=== PATIENT | male | born 1970 ===

== ENCOUNTER 2017-09-24 00:42 | Emergency (ER) | payer BC ==
[2017-09-24 00:42] VITALS: BMI 41.0
[2017-09-24 00:50] VITALS: BP 143/88; PULSE 95; RESP 20; TEMP 97.8; O2SAT 98
--- NOTE | 2017-09-24 01:05 | C.PDOC ---
History Of Present Illness 47 year old male presents to the ER with a complaint of tooth ache worsening over the past week after having a crown placed. Denies tooth discharge or recent injury. Time Seen by Provider: 09/24/17 00:51 Chief Complaint (Nursing): Dental Pain History Per: Patient History/Exam Limitations: no limitations Onset/Duration Of Symptoms: Days Current Symptoms Are (Timing): Still Present Quality: Positive for: Aching Recent travel outside of the [place]: No Past Medical History Reviewed: Historical Data, Nursing Documentation, Vital Signs Vital Signs: Last Vital Signs Temp 97.8 F 09/24/17 00:47 Pulse 95 H 09/24/17 00:47 Resp 20 09/24/17 00:47 BP 143/88 09/24/17 00:47 Pulse Ox 98 09/24/17 01:51 - Medical History PMH: No Chronic Diseases Surgical History: Appendectomy Family History: States: Unknown Family Hx - Social History Hx Tobacco Use: Yes Hx Alcohol Use: No Hx Substance Use: No - Immunization History Hx Tetanus Toxoid Vaccination: No Hx Influenza Vaccination: No Hx Pneumococcal Vaccination: No Review Of Systems ENT: Positive for: Mouth Pain. Negative for: Mouth Swelling, Throat Pain Physical Exam - Physical Exam Appears: Non-toxic, No Acute Distress Skin: Normal Color, Warm, Dry Head: Atraumatic, Normacephalic, No Swelling (Facial) Eye(s): bilateral: Normal Inspection, PERRL Ear(s): Bilateral: Normal Nose: Normal Oral Mucosa: Moist Tongue: Normal Appearing, No Swelling Lips: Normal Appearing, No Swelling Teeth: Normal Dentition, Caries (multiple), No Tender To Palpation Gingiva: Normal Appearing, No Swelling Throat: Normal, No Erythema Neck: Normal, Supple ED Course And Treatment O2 Sat by Pulse Oximetry: 98 (Room air) Pulse Ox Interpretation: Normal Progress Note: Tylenol administered. Patient instructed to take OTC medication for pain as needed and to follow up with dentist for further evaluation. Disposition - Disposition Referrals: Dentist, dental office [Other] Disposition: HOME/ ROUTINE Disposition Time: :02 Condition: STABLE Additional Instructions: Avoid very cold or very hot foods Take meds as directed- May take advil up to 800 mg with foods Tylenol no 3 for severe pain Return to ER if worse Prescriptions: Acetaminophen with Codeine [Tylenol with Codeine #3 Tablet] 2 each PO QID #14 tablet Instructions: Toothache (ED) Forms: [facility] ([place]) - Clinical Impression Clinical Impression: Toothache - Scribe Statement The provider has reviewed the documentation as recorded by the Scribe Joshua Vick All medical record entries made by the Scribe were at my direction and personally dictated by me. I have reviewed the chart and agree that the record accurately reflects my personal performance of the history, physical exam, medical decision making, and the department course for this patient. I have also personally directed, reviewed, and agree with the discharge instructions and disposition.
[2017-09-24] MEDS ORDERED: Acetaminophen-Codeine 300/30 mg Tab PO STA (01:08)
[2017-09-24] MEDS ORDERED: Acetaminophen-Codeine 300/30 mg Tab PO ONE (01:13)
== END 2017-09-24 01:21 | disposition home or self-care (01) ==
LOC: C.ER 00:42
DX: K08.89 Other specified disorders of teeth and supporting structures (principal); F17.210 Nicotine dependence, cigarettes, uncomplicated